=== PATIENT | male | born 1935 | race Hispanic/Latino ===

== ENCOUNTER → 2021-10-19 | Outpatient (CLI) | payer OTHER ==
[~2021-10-19] MED LIST: IOHEXOL 350 MG/ML 100ML INFUS..BTL IV ONE; IOHEXOL-350 50ML VIAL IV ONE
== END | disposition home or self-care (01) ==
LOC: RAH 10:00
PROVIDERS: ATTEND Internal Medicine Cardiovascular Disease
DX: I70.203 Unspecified atherosclerosis of native arteries of extremities, bilateral legs (principal); I70.0 Atherosclerosis of aorta; I70.8 Atherosclerosis of other arteries; K44.9 Diaphragmatic hernia without obstruction or gangrene; K80.20 Calculus of gallbladder without cholecystitis without obstruction; N40.0 Benign prostatic hyperplasia without lower urinary tract symptoms
CPT/HCPCS: 75635; Q9967 ×2

== ENCOUNTER 2022-01-29 05:43 | Day surgery (SDC) | payer OTHER ==
[2022-01-25 10:51] LABS: BASOPHILS % (AUTO) 0.6 % (0.0-5.0); EOSINOPHILS % (AUTO) 2.6 % (0.0-8.0); HEMATOCRIT 44.1 % (42-54); LYMPHOCYTES % (AUTO) 19.4 % (21.0-51.0); MEAN CORPUSCULAR HEMOGLOBIN 28.1 pg (27.0-33.0); MEAN CORPUSCULAR HGB CONC 32.4 g/dL (32.0-36.0); MEAN CORPUSCULAR VOLUME 86.8 fL (79-99); MONOCYTES % (AUTO) 8.3 % (3.0-13.0); NEUTROPHILS % (AUTO) 68.8 % (40.0-77.0); PLATELET COUNT (AUTO) 236 K/uL (130-400); RED BLOOD CELL COUNT(AUTO) 5.08 MIL/uL (4.50-6.20); RED CELL DISTRIBUTION WIDTH 14.7 % (11.0-15.5); WHITE BLOOD COUNT (AUTO) 6.7 K/uL (4.8-10.8)
[2022-01-25 11:49] LABS: INR 1.04 (0.85-1.15); PROTHROMBIN TIME 11.3 SEC (9.6-11.6)
[2022-01-25 11:51] LABS: PARTIAL THROMBOPLASTIN TIME 30.8 SEC (26.3-35.5)
[2022-01-28 11:46] VITALS: BP 199/99
[2022-01-29] VITALS (10 sets, daily range): BP systolic 94–127; BP diastolic 66–80
[~2022-01-29] VITALS: Ht 167.6 cm; Wt 55.3 kg
[~2022-01-29 05:43] MED LIST changes: +CIPR500T10 PO; +DUTA0.5C37 PO; +FERS325 PO; -IOHEXOL 350 MG/ML 100ML INFUS..BTL IV ONE; -IOHEXOL-350 50ML VIAL IV ONE; +ISOS60TA77 PO; +LEVO50CA4 PO; +METF-444 PO; +MIRT7.5T11 PO; +OMEP20CA12 PO
[2022-01-29] MEDS ORDERED: 0.9%NACL 1000ML 1,000 ML IV ONE (06:46)
[2022-01-29] MEDS ORDERED: NITROGLYCERIN 50MG VIAL ONE (07:11)
[2022-01-29] MEDS ORDERED: HEPARIN 10,000 UNIT/10ML (1,000 UNIT/ML) VIAL ONE (07:11)
[2022-01-29] MEDS ORDERED: LIDOCAINE PF 100MG/5ML (2%) SYRINGE 5ML ONE (07:11)
[2022-01-29] MEDS ORDERED: IODIXANOL 320 MG/ML 100 ML VIAL ONE (07:12)
[2022-01-29] MEDS ORDERED: MIDAZOLAM HCL 1 MG/ML 2ML VIAL ONE (07:49)
[2022-01-29] MEDS ORDERED: FENTANYL CITRATE PF 50 MCG/1 ML 2ML VIAL ONE (07:49)
[2022-01-29] MEDS ORDERED: 0.9%NACL 1000ML 1,000 ML IV SCH (09:30)
[2022-01-29] MEDS ORDERED: DEXTROSE 50%-WATER 50 ML DISP.SYRIN IV PRN (09:30)
[2022-01-29] MEDS ORDERED: GLUCAGON 1MG KIT 1 MG ML IM PRN (09:30)
== END 2022-01-29 13:10 | disposition home or self-care (01) ==
LOC: DAH 05:43
PROVIDERS: ATTEND Internal Medicine Cardiovascular Disease
DX: I70.248 Atherosclerosis of native arteries of left leg with ulceration of other part of lower leg (principal); I70.238 Atherosclerosis of native arteries of right leg with ulceration of other part of lower leg; I70.92 Chronic total occlusion of artery of the extremities; L97.511 Non-pressure chronic ulcer of other part of right foot limited to breakdown of skin; E03.9 Hypothyroidism, unspecified; D50.9 Iron deficiency anemia, unspecified; K21.9 Gastro-esophageal reflux disease without esophagitis; E11.51 Type 2 diabetes mellitus with diabetic peripheral angiopathy without gangrene; Z79.01 Long term (current) use of anticoagulants; Z79.899 Other long term (current) drug therapy
CPT/HCPCS: 80048; 85025; 85610; 85730; 36415; 71045; 93005; 75716; 36246; 82948 ×2; C1894 ×2; C1760; C1769; J3010; J7030; J2001; J2250; J1644; J3490; Q9967; A4215; A4222; A4221; A4663; A4216; A4606; A4223 ×3; 75625; 96360; 96361; 99156; 99157